=== PATIENT | female | born 1965 | race Caucasian/White ===

== ENCOUNTER 2018-07-30 09:10 | Emergency (ER) | payer OTHER ==
[2018-07-30] MEDS ORDERED: IBUPROFEN 600 MG TABLET PO ONE (09:31)
--- NOTE | 2018-07-30 09:31 | ER Document Report ---
ED Medical Screen (RME) - General Chief Complaint: Back Pain Stated Complaint: BACK PAIN Time Seen by Provider: 07/30/18 09:29 Mode of Arrival: Ambulatory Information source: Patient TRAVEL OUTSIDE OF THE [place] IN LAST 30 DAYS: No - HPI Patient complains to provider of: midd back pain Onset: Other - pt with 4 day h/o mid back pain. Denies trauma. - Related Data Allergies/Adverse Reactions: codeine Allergy (Verified 07/30/18 09:14) Anaphylaxis Penicillins Allergy (Verified 07/30/18 09:14) Physical Exam - Vital signs Vitals: Temp Pulse Resp BP Pulse Ox 97.9 F 64 18 113/68 98 07/30/18 09:22 07/30/18 09:22 07/30/18 09:22 07/30/18 09:22 07/30/18 09:22 Course - Vital Signs Vital signs: Temp Pulse Resp BP Pulse Ox 97.9 F 64 18 113/68 98 07/30/18 09:22 07/30/18 09:22 07/30/18 09:22 07/30/18 09:22 07/30/18 09:22
--- NOTE | 2018-07-30 09:57 | RADIOLOGY REPORT (SQ) ---
EXAM DESCRIPTION: T SPINE AP/LAT COMPLETED DATE/TIME: 07/30/2018 9:44 am REASON FOR STUDY: mid back pain COMPARISON: None. NUMBER OF VIEWS: Two views. TECHNIQUE: AP and lateral radiographic images acquired of the thoracic spine. LIMITATIONS: None. FINDINGS: MINERALIZATION: Normal. ALIGNMENT: Normal. No scoliosis. VERTEBRAE: No fracture or bone lesion. Maintained height, normal segmentation. DISCS: No significant loss of height or significant narrowing. No large osteophytes. HARDWARE: None in the spine. MEDIASTINUM AND SOFT TISSUES: Normal heart size and aortic contour. No soft tissue abnormality. VISUALIZED LUNG TANG: Clear. OTHER: No other significant finding. IMPRESSION: NO SIGNIFICANT RADIOGRAPHIC FINDING IN THE THORACIC SPINE. TECHNICAL DOCUMENTATION: JOB ID: [id number] [employer]- All Rights Reserved Reading location - IP/workstation name: [email or web address]
[2018-07-30] MEDS ORDERED: LIDOCAINE 5% (700 MG) TRANSDERMAL ADH..PATCH TP ONE (10:10)
--- NOTE | 2018-07-30 10:10 | ER Document Report ---
ED General - General Chief Complaint: Back Pain Stated Complaint: BACK PAIN Time Seen by Provider: 07/30/18 09:29 Mode of Arrival: Ambulatory TRAVEL OUTSIDE OF THE [place] IN LAST 30 DAYS: No - HPI Patient complains to provider of: back pain Onset: Other - 52-year-old female that presents for evaluation of right-sided midthoracic back pain which developed after waking from sleep, she is otherwise healthy and has no known medical problems takes no medications. Has never had anything like this before, she states that she believes she may have strained a muscle as she is been helping her daughter move recently but does not remember a specific event. Through triage she had an x-ray of her back ordered. She denies any fevers or chills recent trauma, recent long travel, previous blood clot issues. - Related Data Allergies/Adverse Reactions: codeine Allergy (Verified 07/30/18 09:34) Anaphylaxis Penicillins Allergy (Verified 07/30/18 09:34) Past Medical History - General Information source: Patient - Social History Smoking Status: Current Every Day Smoker Chew tobacco use (# tins/day): No Frequency of alcohol use: Occasional Drug Abuse: None Family History: None Patient has suicidal ideation: No Patient has homicidal ideation: No Renal/ Medical History: Denies: Hx Peritoneal Dialysis Past Surgical History: Reports: Hx Breast Surgery - lumpectomy Review of Systems - Review of Systems -: Yes All other systems reviewed and negative Physical Exam - Vital signs Vitals: Temp Pulse Resp BP Pulse Ox 97.9 F 64 18 113/68 98 07/30/18 09:22 07/30/18 09:22 07/30/18 09:22 07/30/18 09:22 07/30/18 09:22 - General General appearance: Appears well In distress: None - HEENT Head: Normocephalic Eyes: Normal Conjunctiva: Normal Cornea: Normal Pupils: PERRL - Respiratory Respiratory status: No respiratory distress Chest status: Nontender Breath sounds: Normal Chest palpation: Normal - Cardiovascular Rhythm: Regular Heart sounds: Normal auscultation Murmur: No - Abdominal Inspection: Normal Distension: No distension Bowel sounds: Normal Tenderness: Nontender Organomegaly: No organomegaly - Back Back: Tender - Tenderness to palpation along the right back in the paraspinal muscles in the midthoracic spine - Extremities General upper extremity: Normal inspection, Nontender, Normal color, Normal ROM , Normal temperature General lower extremity: Normal inspection, Nontender, Normal color, Normal ROM , Normal temperature, Normal weight bearing. No: Theresa's sign - Neurological Neuro grossly intact: Yes Cognition: Normal Orientation: AAOx4 [place] Coma Scale Eye Opening: Spontaneous [place] Coma Scale Verbal: Oriented [place] Coma Scale Motor: Obeys Commands De[place] Coma Scale Total: 15 Speech: Normal Motor strength normal: LUE, RUE, LLE, RLE Sensory: Normal - Psychological Associated symptoms: Normal affect Course - Re-evaluation Re-evalutation: 08/01/18 10:29 Pleasant 52-year-old woman who is well's criteria low risk for pulmonary embolism who presents with what appears to be likely a muscle strain in her back. Had an x-ray ordered through triage which does not demonstrate any acute abnormalities listheses fractures or lytic lesions. Patient does have paraspinal tenderness, I did speak to her about potential options including muscle relaxers Lidoderm patches physical therapy further imaging she declined all of these says that she likes to do things naturally would like to avoid any medications if able. Plan will be for this patient to undergo discharge with return precautions. - Vital Signs Vital signs: Temp Pulse Resp BP Pulse Ox 98.3 F 60 18 117/72 99 07/30/18 11:12 07/30/18 11:12 07/30/18 11:12 07/30/18 11:12 07/30/18 11:12 Discharge - Discharge Clinical Impression: Muscle strain Back strain Qualifiers: Encounter type: initial encounter Qualified Code(s): S39.012A - Strain of muscle, fascia and tendon of lower back, initial encounter Condition: Good Disposition: HOME, SELF-CARE Instructions: Ice Packs ([facility]), Muscle Strain ([facility]) Additional Instructions: Your seen today in the emergency department for your back pain. He had evaluation including x-rays of your spine. No obvious abnormality was identified, it appears that your back pain is likely related to a muscle strain along there. You should use Tylenol 1 g 3 times daily to help with the symptoms. Use warm compresses as well. Make sure you are doing gentle stretching at least twice a day. If you have any worsening shortness of breath, cough, inability to breathe you should return to the emergency room as it may be a more serious condition.
[2018-07-30 11:13] VITALS: BP 117/72
== END 2018-07-30 11:12 | disposition home or self-care (01) ==
LOC: ER 09:10
DX: S39.012A Strain of muscle, fascia and tendon of lower back, initial encounter (principal); X58.XXXA Exposure to other specified factors, initial encounter; M54.6 Pain in thoracic spine; F17.200 Nicotine dependence, unspecified, uncomplicated; Z88.0 Allergy status to penicillin; Z87.892 Personal history of anaphylaxis; Z88.5 Allergy status to narcotic agent
CPT/HCPCS: 72070; 99283

== ENCOUNTER 2019-01-19 08:51 | Emergency (ER) | payer MEDICAID, OTHER ==
[2019-01-19 08:54] VITALS: BP 121/75
--- NOTE | 2019-01-19 09:26 | ER Document Report ---
HPI - HPI Patient complains to provider of: Numbness to left great toe Time Seen by Provider: 01/19/19 09:10 Onset: This morning Onset/Duration: Gradual Quality of pain: Achy Pain Level: 2 Context: Patient presents complaining of pain and numbness to left great toe. Patient denies any trauma or injury to the toe. Patient states she called her primary doctor and showed them a picture of her toe and they told her to come here to get an x-ray. Patient denies any history of diabetes or any history of neuropathy. Associated Symptoms: Other - Left great toe pain and numbness Exacerbated by: Denies Relieved by: Denies Similar symptoms previously: No Recently seen / treated by doctor: No - ROS ROS below otherwise negative: Yes Systems Reviewed and Negative: Yes All other systems reviewed and negative - CONSTITUTIONAL Constitutional: DENIES: Fever, Chills - NEURO Neurology: DENIES: Weakness - GASTROINTESTINAL Gastrointestinal: DENIES: Nausea - REPRODUCTIVE Reproductive: DENIES: : - MUSCULOSKELETAL Musculoskeletal: REPORTS: Extremity pain - DERM Skin Color: Normal Skin Problems: None Past Medical History - General Information source: Patient - Social History Smoking Status: Current Every Day Smoker Frequency of alcohol use: Occasional Drug Abuse: None Family History: None Endocrine Medical History: Reports: Hx Hypothyroidism Renal/ Medical History: Denies: Hx Peritoneal Dialysis Past Surgical History: Reports: Hx Breast Surgery - lumpectomy Vertical Provider Document - CONSTITUTIONAL Agree With Documented VS: Yes Exam Limitations: No Limitations General Appearance: WD/WN, No Apparent Distress - INFECTION CONTROL TRAVEL OUTSIDE OF THE [place] IN LAST 30 DAYS: No - HEENT HEENT: Atraumatic, Normocephalic - NECK Neck: Normal Inspection - RESPIRATORY Respiratory: No Respiratory Distress - CARDIOVASCULAR Pulses: Normal: Dorsalis pedis - MUSCULOSKELETAL/EXTREMETIES Musculoskeletal/Extremeties: MAEW, FROM, Tender - Mild tenderness at medial aspect of left great toenail that appears slightly ingrown, otherwise normal skin color and temperature. - NEURO Level of Consciousness: Awake, Alert, Appropriate Motor/Sensory: No Motor Deficit - DERM Integumentary: Warm, Dry, No Rash Notes: No sores noted to the foot Course - Re-evaluation Re-evalutation: 01/19/19 09:27 Patient spoke with 1 of her friends who got her into seeing a carbider right now. Patient is requesting be discharged so that she can go see the carbider. Offered patient Accu-Chek, patient declines waiting to have this done and wants to go directly to the carbider office. - Vital Signs Vital signs: Temp Pulse Resp BP Pulse Ox 98.3 F 83 16 121/75 97 01/19/19 08:53 01/19/19 08:53 01/19/19 08:53 01/19/19 08:53 01/19/19 08:53 Discharge - Discharge Clinical Impression: toe numbness Condition: Stable Disposition: HOME, SELF-CARE Additional Instructions: Return immediately for any new or worsening symptoms Followup with your carbider as planned Referrals: FRANCE GUARDADO DPM [ACTIVE STAFF] - Follow up as needed LETITIA RENTERIA DPM [ACTIVE STAFF] - Follow up as needed
== END 2019-01-19 09:29 | disposition home or self-care (01) ==
LOC: ER 08:51
DX: R20.0 Anesthesia of skin (principal); M79.675 Pain in left toe(s); F17.200 Nicotine dependence, unspecified, uncomplicated
CPT/HCPCS: 99283

== ENCOUNTER 2019-10-24 04:34 | Emergency (ER) | payer BC, MEDICAID, OTHER ==
[2019-10-24 04:41] VITALS: BP 112/75
--- NOTE | 2019-10-24 05:45 | RADIOLOGY REPORT (SQ) ---
EXAM DESCRIPTION: XR NECK SOFT TISSUE COMPLETED DATE/TME: 10/24/2019 04:52 CLINICAL HISTORY: 54 years, Female, hoarse voice COMPARISON: None. NUMBER OF VIEWS: Two TECHNIQUE: Two views of the neck LIMITATIONS: None. FINDINGS: The prevertebral soft tissues are normal. The epiglottis is normal. The nasopharynx, oropharynx and supraglottic and infraglottic airways appear unremarkable. The hyoid bone is normal. No radiopaque foreign bodies identified. There is spondylosis of the cervical spine, most notably at C5-C6. There is no acute fracture or subluxation. IMPRESSION: Unremarkable exam. copyright 2010 [employer]- All Rights Reserved
--- NOTE | 2019-10-24 09:48 | EKG REPORT ---
SEVERITY:- ABNORMAL ECG - SINUS RHYTHM CONSIDER ANTEROSEPTAL INFARCT : Confirmed by: Polina Bourne 24-Oct-2019 09:47:41
== END 2019-10-24 08:00 | disposition left against medical advice (07) ==
LOC: ER 04:34
DX: Z53.21 Procedure and treatment not carried out due to patient leaving prior to being seen by health care provider (principal); R49.0 Dysphonia
CPT/HCPCS: 70360; 93005; 93010